=== PATIENT | male | born 1970 | race Caucasian/White ===

== ENCOUNTER 2020-08-24 11:36 | Emergency (ER) | payer MEDICAID ==
[~2020-08-24] VITALS: Ht 160 cm; Wt 79.4 kg
--- NOTE | 2020-08-24 11:36 | NUR ---
BROUGHT IN BY [facility], NO ER BEDS AVAILABLE AT THIS TIME. AWAITING AVAILABLE ER BED.
[2020-08-24 11:40] VITALS: BP_SYST 122
--- NOTE | 2020-08-24 12:35 | NUR ---
RESTING QUIETLY, NO SEIZURE ACTIVITY, PT NON-VERBAL.
--- NOTE | 2020-08-24 13:05 | NUR ---
PT AMBULATORY TO RESTROOM, RETURNED TO [facility]
[2020-08-24 13:08] LABS: BASOPHILS % (AUTO) 0.3 % (0.0-2.0); EOSINOPHILS # (AUTO) 0.2 K/uL (0.0-0.4); EOSINOPHILS % (AUTO) 1.3 % (0.0-4.0); HEMOGLOBIN 13.3 g/dL (14.0-18.0); LYMPHOCYTES # (AUTO) 0.4 K/uL (1.0-5.5); LYMPHOCYTES % (AUTO) 2.6 % (20.5-51.5); MEAN CORPUSCULAR HEMOGLOBIN 31 pg (27-31); MEAN CORPUSCULAR HGB CONC 34 % (32-36); MEAN CORPUSCULAR VOLUME 91 fL (79.0-98.0); MONOCYTES # (AUTO) 0.8 K/uL (0.0-1.0); MONOCYTES % (AUTO) 5.3 % (1.7-9.3); NEUTROPHILS # (AUTO) 13.3 K/uL (1.8-7.7); NEUTROPHILS % (AUTO) 90.5 % (40.0-70.0); PLATELET COUNT (AUTO) 292 K/uL (130-430); RED CELL DISTRIBUTION WIDTH 17.6 % (9.0-15.0); WHITE BLOOD COUNT (AUTO) 14.6 K/uL (4.8-10.8)
[2020-08-24 13:29] LABS: ANION GAP 13 (5-15); CALCIUM 8.5 mg/dL (8.4-11.0); CHLORIDE 88 mmol/L (98-107); CREATININE 0.75 mg/dL (0.55-1.30); GLUCOSE 96 mg/dL (70-99); POTASSIUM 3.6 mmol/L (3.5-5.1); PROTHROMBIN TIME 10.7 SECS (9.5-12.5); SODIUM SERUM 126 mmol/L (136-145); UREA NITROGEN, BLOOD 14 mg/dL (8-21)
[2020-08-24 13:30] LABS: GFR AFRICAN AMERICAN 142 mL/min (>90)
[2020-08-24 13:41] LABS: ALANINE AMINOTRANSFERASE 32 U/L (12-78); ALBUMIN 3.7 g/dL (3.4-4.8); ASPARTATE AMINOTRANSFERASE 6 U/L (10-37); BILIRUBIN,DIRECT 0.2 mg/dL (0.0-0.3); LIPASE 37 U/L (73-393); TOTAL BILIRUBIN 0.9 mg/dL (0.0-1.0)
[2020-08-24] MEDS: levETIRAcetam 1,000 MG in NS 90 ML IV ONE (13:45)
--- NOTE | 2020-08-24 14:01 | NUR ---
RESTING QUIETLY, NO CHANGES
[2020-08-24] MEDS: SODIUM CHLORIDE 3% *HI-ALERT* 100 ML IV ONE (15:00)
--- NOTE | 2020-08-24 15:50 | NUR ---
PT NOW SAYING ONE WORDS, SLEEPING BUT EASILY AROUSABLE.
[2020-08-24] MEDS: DEXAMETHASONE SOD PHOSPHATE 4 MG/ML VIAL IVP ONE (16:15)
--- NOTE | 2020-08-24 17:05 | NUR ---
DR BARRERA SPEAKING WITH FAMILY
--- NOTE | 2020-08-24 17:15 | NUR ---
PT SPEAKING FEW WORD SENTENCES AT THIS TIME. AMBULATORY WITH [facility].
--- NOTE | 2020-08-24 17:28 | NUR ---
REPORT GIVEN TO [facility] HERE TO TRANSPORT PT. VSS.
[2020-08-24 17:30] VITALS: BP_SYST 130
--- NOTE | 2020-08-24 17:31 | NUR ---
Patient to be transferred to [facility] ICU6 ROOM 6431. Is being transferred due to higher level of care. Receiving facility has accepting physician and available space. ER physician has signed transfer form. Patient or responsible green party has agreed to transfer and signed form. Patient belongings inventoried and will be sent with patient. Copy of nursing notes, lab reports, EKG, Physicians Orders and X-rays to be sent with patient. Report called to [facility] at receiving facility. Receiving physician is MARK. [facility] service has been called for transfer. ETA is NOW.
== END 2020-08-24 17:31 | disposition short-term general hospital (02) ==
LOC: SED 11:36
DX: I61.9 Nontraumatic intracerebral hemorrhage, unspecified (principal); G93.6 Cerebral edema; G93.40 Encephalopathy, unspecified; R11.10 Vomiting, unspecified
CPT/HCPCS: 36415; 70450; 80048; 80076; 83690; 84484; 85025; 85610; 93005; 96365; 96375; 99291; J1100; J1953; J3490; 76376